=== PATIENT | male | born 1975 | race Caucasian/White ===

== ENCOUNTER 2016-09-17 17:51 | Emergency (ER) | payer BC ==
[~2016-09-17] VITALS: Wt 97.5 kg
[~2016-09-17 17:51] MED LIST: CEPHALEXIN500 M1 PO; HYDROCODONE BIT1 T11 PO
[2016-09-17] MEDS ORDERED: ORPHENADRINE C100 M1 PO (18:56)
[2016-09-17] MEDS ORDERED: NAPROSYN500 MG PO (18:56)
== END 2016-09-17 18:59 | disposition home or self-care (01) ==
LOC: ED 17:51
DX: M43.6 Torticollis (principal)

== ENCOUNTER → 2024-01-02 | Outpatient (CLI) | payer OTHER ==
[~2024-01-02] MED LIST changes: +NAPROSYN500 MG PO; +ORPHENADRINE C100 M1 PO
[2024-01-02 07:50] LABS: BASO % 0.5 % (0.0-1.0); EOS # 0.2 10*3/uL (0.0-0.4); EOS % 2.8 % (1.0-4.0); HEMATOCRIT 42.6 % (42.0-52.0); LYMPH # 1.4 10*3/uL (1.3-4.4); LYMPH % 24.8 % (27.0-41.0); MEAN CELL VOLUME 87.5 fl (80.0-94.0); MEAN CORPUSCULAR HGB 28.7 pg (27.0-31.0); MEAN CORPUSCULAR HGB CONC 32.9 g/dl (33.0-37.0); MEAN PLATELET VOLUME 9.7 fl (9.6-12.3); MONO # 0.6 10*3/uL (0.1-1.0); NEUT # 3.5 10*3/uL (2.3-7.9); NEUT % 60.6 % (47.0-73.0); PLATELET COUNT AUTOMATED 209 10*3/uL (130-400); RED BLOOD COUNT 4.87 10*6/uL (4.50-5.90); RED CELL DISTRI WIDTH 13.1 % (0-14.5); WHITE BLOOD COUNT 5.7 10*3/uL (4.8-10.8)
[2024-01-02 08:08] LABS: ACT PARTIAL THROMBO TIME 30.7 SECONDS (20.0-32.1)
[2024-01-02 08:09] LABS: BILIRUBIN Negative (Negative); BLOOD Negative (Negative); CLARITY Clear (Clear); COLOR Yellow (Yellow); GLUCOSE Negative (Negative); KETONE Negative (Negative); LEUKO ESTERASE Negative (Negative); NITRITE Negative (Negative); UROBILINOGEN 0.2 E.U./dl (0.0-1.0)
[2024-01-02 08:18] LABS: ALKALINE PHOSPHATASE 68 U/L (46-116); BUN 13 mg/dl (9-23); CHLORIDE 107 mmol/L (98-107); SGPT/ALT 31 U/L (5-49); TOTAL PROTEIN 6.9 gm/dL (6.0-8.0)
[2024-01-02 08:25] LABS: CHOLESTEROL 146 mg/dL (<200); LDL CHOLESTEROL 87 mg/dL (9-159); TRIGLYCERIDES 73 mg/dl (<150)
[2024-01-02 08:31] LABS: RBC 0-2 rbc/hpf (0-2)
[2024-01-02 08:32] LABS: BACTERIA TRACE; WBC 0-2 wbc/hpf (0-5)
== END | disposition home or self-care (01) ==
LOC: LAB 07:26
PROVIDERS: Family Medicine; ATTEND Orthopaedic Surgery
DX: Z01.818 Encounter for other preprocedural examination (principal)

== ENCOUNTER → 2024-02-13 | Outpatient (CLI) | payer OTHER | END | disposition home or self-care (01) | LOC: US 14:00 | PROVIDERS: ATTEND Orthopaedic Surgery | DX: Z96.642 Presence of left artificial hip joint (principal) ==

== ENCOUNTER 2025-01-22 21:07 | Emergency (ER) | payer OTHER ==
[~2025-01-22] VITALS: Ht 182.8 cm; Wt 95.3 kg
[2025-01-22] MEDS ORDERED: CIALIS10 MG PO (21:32)
[2025-01-22] MEDS ORDERED: COZAAR25 M1 PO (21:32)
[2025-01-22] MEDS ORDERED: Ondansetron Hydrochloride 4 MG TAB SL ONE (23:45)
[2025-01-23] MEDS ORDERED: MEDI-MECLIZINE25 MG PO (01:23)
[2025-01-23] MEDS ORDERED: Ondansetron4 MG PO (01:23)
== END 2025-01-23 01:50 | disposition home or self-care (01) ==
LOC: ED 21:07
DX: H81.11 Benign paroxysmal vertigo, right ear (principal); R11.2 Nausea with vomiting, unspecified; Z79.899 Other long term (current) drug therapy